=== PATIENT | male | born 1965 | race Caucasian/White ===

== ENCOUNTER → 2024-12-03 10:23 | Outpatient (REF) | payer OTHER, SELFPAY | LOC: HWRCS 10:23 | PROVIDERS: ATTENDING PHYSICIAN Internal Medicine Cardiovascular Disease; FAMILY PHYSICIAN Student in an Organized Health Care Education/Training Program | DX: R94.31 Abnormal electrocardiogram [ECG] [EKG] (principal) | CPT/HCPCS: 93306 ==

== ENCOUNTER 2024-12-31 07:22 | Outpatient (RCR) | payer OTHER, SELFPAY | END 2024-12-31 23:59 | disposition home or self-care (01) | LOC: ROT 07:22 | PROVIDERS: ATTENDING PHYSICIAN Orthopaedic Surgery | DX: S63.651D Sprain of metacarpophalangeal joint of left index finger, subsequent encounter (principal); Z73.6 Limitation of activities due to disability | CPT/HCPCS: 97760 ==